=== PATIENT | female | born 1955 | race Caucasian/White ===

== ENCOUNTER 2019-11-11 09:07 | Outpatient (CLI) | payer MEDICARE, OTHER, SELFPAY ==
--- NOTE | ~2019-11-11 | MM_ITS ---
EXAMINATION: MM screening [facility] BI w nohemy HISTORY: Screening mammogram TECHNIQUE: Craniocaudal and mediolateral oblique 3-D tomosynthesis images were obtained and synthetic 2-D images were generated. CAD analysis was submitted and interpreted. COMPARISON: 08/21/2018, 08/06/2017, 07/11/2016 bilateral digital screening mammogram examinations BREAST PARENCHYMAL COMPOSITION: The breasts are heterogeneously dense, which may obscure small masses . FINDINGS: There is prominent retraction/deformity of the left breast related to partial mastectomy fo r breast cancer in 2001. Surgical clips are noted in the left axillary area. Biopsy marker is noted on the right; history of prior benign right breast biopsy. There is no evidence of interval suspicious mass, calcification, or new architectural distortion to suggest malignancy in either breast. There has been no suspicious interval change. IMPRESSION: 1. Status post left partial mastectomy for breast cancer. No mammographic evidence of malignancy. 2. Recommend routine screening mammography in one year. BI-RADS Category 2: Benign finding(s). Reviewed, dictated and finalized at location A. IMPRESSION: 1. Status post left partial mastectomy for breast cancer. No mammographic evide nce of malignancy. 2. Recommend routine screening mammography in one year. BI-RADS Category 2: Benign finding(s).
== END 2019-11-11 09:08 | disposition home or self-care (01) ==
PROVIDERS: PCP Internal Medicine; Visit Provider Nurse Practitioner
DX: Z12.31 Encounter for screening mammogram for malignant neoplasm of breast (principal)
CPT/HCPCS: 77063; 77067

== ENCOUNTER → 2020-11-14 11:11 | Outpatient (CLI) | payer MEDICARE, OTHER, SELFPAY ==
--- NOTE | ~2020-11-14 | MM_ITS ---
EXAMINATION: MM screening [facility] BI w nohemy HISTORY: Screening TECHNIQUE: Craniocaudal and mediolateral oblique 3-D tomosynthesis images were obtained and synthetic 2-D images were generated. CAD analysis was submitted and interpreted. COMPARISON: No prior mammogram is available for comparison at this institution. BREAST PARENCHYMAL COMPOSITION: The breasts are heterogeneously dense, which may obscure small masses . FINDINGS: Stable lumpectomy changes in the left breast. There is no evidence of suspicious mass, calc ification, or architectural distortion to suggest malignancy in either breast. There has been no susp icious interval change. IMPRESSION: 1. No mammographic evidence of malignancy. 2. Recommend routine screening mammography in one year. BI-RADS Category 1: Negative Reviewed, dictated and finalized at location A.
== END ==
PROVIDERS: PCP Internal Medicine; Visit Provider Nurse Practitioner
DX: Z12.31 Encounter for screening mammogram for malignant neoplasm of breast (principal)
CPT/HCPCS: 77063; 77067

== ENCOUNTER → 2021-11-16 15:45 | Outpatient (CLI) | payer MEDICARE, OTHER, SELFPAY ==
--- NOTE | ~2021-11-16 | MM_ITS ---
EXAMINATION: MM screening [facility] BI w nohemy HISTORY: Screening TECHNIQUE: Craniocaudal and mediolateral oblique 3-D tomosynthesis images were obtained and synthetic 2-D images were generated. CAD analysis was submitted and interpreted. COMPARISON: Comparison to multiple prior studies sequentially, with oldest reviewed study dated 07/06. BREAST PARENCHYMAL COMPOSITION: There are scattered areas of fibroglandular density. FINDINGS: Stable architectural distortion in the left breast, consistent with previous lumpectomy. Th ere is no evidence of suspicious mass, calcification, or architectural distortion to suggest malignan cy in either breast. There has been no suspicious interval change. IMPRESSION: 1. No mammographic evidence of malignancy. 2. Recommend routine screening mammography in one year. BI-RADS Category 1: Negative Reviewed, dictated and finalized at location A.
== END ==
PROVIDERS: PCP Internal Medicine; Visit Provider Nurse Practitioner
DX: Z12.31 Encounter for screening mammogram for malignant neoplasm of breast (principal)
CPT/HCPCS: 77063; 77067

== ENCOUNTER → 2022-05-01 11:44 | Outpatient (CLI) | payer MEDICARE, OTHER, SELFPAY ==
--- NOTE | ~2022-05-01 | DEXA_ITS ---
Bone Density Report Name: JF STARK Age: 67 Sex: Female Ethnicity: White Date of : 1955 Indication: osteopenia; height loss;postmenopausal Referring Provider: HUI TANNER Study: Bone densitometry was performed. Exam Date: May 01, 2022 Accession number: [id number] Bone Density: Region BMD T-score Z-score Classification AP Spine (L1, L4) 0.917 -1.1 0.9 Osteopenia Femoral Neck (Left) 0.717 -1.2 0.6 Osteopenia Total Hip (Left) 0.855 -0.7 0.7 Normal Femoral Neck (Right) 0.676 -1.6 0.2 Osteopenia Total Hip (Right) 0.742 -1.6 -0.2 Osteopenia Total Hip Mean 0.799 -1.2 0.3 Osteopenia World Health Organization criteria for BMD impression classify patients as: Normal (T-score at or above -1.0), Osteopenia (T-score between -1.0 and -2.5), or Osteoporosis (T-score at or below -2.5). 10-year Fracture Risk(1): Major Osteoporotic Fracture 9.9% Hip Fracture 1.4% Reported Risk Factors: [place] (), Neck BMD=0.676, BMI=25.6 (1) FRAX(R) Version 3.08. Fracture probability calculated for an untreated patient. Fracture probability may be lower if the patient has received treatment. Previous Exams: Region Exam Age BMD T-score BMD Change BMD Change Date g/cm2 vs Baseline vs Previous AP Spine(L1, L4) 05/01/2022 67 0.917 -1.1 0.070* 0.111* 08/21/2018 63 0.805 -2.1 -0.041* -0.017 07/11/2016 61 0.822 -2.0 -0.024* -0.044* 06/02/2014 59 0.867 -1.5 0.020 0.022 04/23/2012 57 0.845 -1.7 -0.001 0.007 04/05/2010 55 0.838 -1.8 -0.008 -0.021 04/08/2009 54 0.859 -1.6 0.013 0.013 03/04/2007 52 0.846 -1.7 Total Hip(Left) 05/01/2022 67 0.855 -0.7 0.046* 0.036* 08/21/2018 63 0.819 -1.0 0.010 0.010 07/11/2016 61 0.809 -1.1 0.001 -0.026 06/02/2014 59 0.836 -0.9 0.027 -0.019 04/23/2012 57 0.854 -0.7 0.046* 0.006 04/05/2010 55 0.848 -0.8 0.040* 0.003 04/08/2009 54 0.845 -0.8 0.036* 0.036* 03/04/2007 52 0.809 -1.1 Total Hip(Right) 05/01/2022 67 0.742 -1.6 0.009 0.005 08/21/2018 63 0.737 -1.7 0.003 0.003 07/11/2016 61 0.735 -1.7 0.001 -0.026 06/02/2014 59 0.760 -1.5 0.027 0.006 04/23/2012 57 0.754 -1.5 0.020 -0.001 04/05/2010 55 0.755 -1.5 0.022 0.004 04/08/2009 54 0.752
== END ==
PROVIDERS: PCP Internal Medicine; Visit Provider Obstetrics & Gynecology Gynecology
DX: M85.89 Other specified disorders of bone density and structure, multiple sites (principal); Z78.0 Asymptomatic menopausal state
CPT/HCPCS: 77080

== ENCOUNTER → 2022-12-03 12:12 | Outpatient (CLI) | payer MEDICARE, OTHER, SELFPAY ==
--- NOTE | ~2022-12-03 | MM_ITS ---
EXAMINATION: MM screening [facility] BI w nohemy HISTORY: Screening TECHNIQUE: Craniocaudal and mediolateral oblique 3-D tomosynthesis images were obtained and synthetic 2-D images were generated. CAD analysis was submitted and interpreted. COMPARISON: Comparison to multiple prior studies sequentially, with oldest reviewed study dated 07/11. BREAST PARENCHYMAL COMPOSITION: The breasts are heterogeneously dense, which may obscure small masses FINDINGS: There is stable architectural distortion of the left breast, consistent with previous lumpe ctomy. There is no evidence of suspicious mass, calcification, or architectural distortion to suggest malignancy in either breast. There has been no suspicious interval change. IMPRESSION: 1. No mammographic evidence of malignancy. 2. Recommend routine screening mammography in one year. BI-RADS Category 2: Benign finding(s). Reviewed, dictated and finalized at location A.
== END ==
PROVIDERS: PCP Family Medicine; Visit Provider Nurse Practitioner
DX: Z12.31 Encounter for screening mammogram for malignant neoplasm of breast (principal)
CPT/HCPCS: 77063; 77067

== ENCOUNTER 2023-04-09 08:44 | Outpatient (RCR) | payer MEDICARE, OTHER, SELFPAY ==
--- NOTE | 2023-04-09 10:05 | OPREHPOC ---
Outpatient Therapy Plan of Care This is a Multidisciplinary Plan of Care that may contain components documented by all disciplines (PT, OT, and ST.) PT Problem 1 PT Problem #1 Knowledge Deficit PT Goal 1 Goal 1* indep with HEP 2* good safety awareness with mobility PT Problem 2 PT Problem #2 Pain PT Goal 1 Goal 1* pt report no ache in legs PT Problem 3 PT Problem #3 Impaired Functional Mobil PT Goal 1 Goal 1* pt report NO falls pt perform with good balance and no reports of unsteady : 2* hand picker item off floor 3* transfer on/off floor 4* 360' x1 to R 5* 360' x 1 to L 6* bilateral PF single leg standing with good stability x 30 seconds 7* R 8* L 9* monitor dizziness and further assess vestibular system as indicated
--- NOTE | 2023-04-09 10:05 | PTOPEVAL1 ---
Assessment and note entered by Leatha Keith, PT Evaluation Information Assessment Status Evaluation Diagnosis dizziness, leg pain Subjective Information only had one dizzy spell about 10 years ago; no longer have any problems; have issues with vision- -wear either one contact or glasses with prisms, for driving- difficulty with seeing cars; feel like depth perception is off- troubles on stairs or unfamiliar curbs/places; take over the counter vitamins, supplements and cancer drug; feels like legs are weak and ache; lose balance on uneven surfaces; in the past 6 months have fallen 4x--walking on uneven ground in yard, few with walking backwards; ACTIVITY; do not do any regular fitness exercises; is active and busy all day; indep with all home and self care tasks; retired. Reported Pain Level Pain Score Self Report Additional Pain Score Comments pain range in past week 0-5/10; both legs ache; history of back pain and sciatica, this leg feeling is different from back pain; no numbness or tingling in legs, good sensation Assessment PT Clinical Summary Nini has the diagnosis' of: dizziness and leg weakness. She reports more off balance with walking than dizziness. She has issues with: decreased hearing--L ear better than R and has hearing aides, visual changes--decreased depth perception, uses one contact or prism glasses, and sometimes sees double, legs ache--possibly due to the cancer med she is taking. She has had 4 falls in the past 6 months. With the evaluation: Morgan balance score of 55/56; decreased standing dynamic balance with 360' turn to R and L, bilateral ankle PF, tandem stand, single leg stand, picking item up off floor and transfer on/off floor. The only activity that caused dizziness was 360' turn to R and L; with the others reported hard to do or off balance. Skilled PT services are indicated for therapeutic exercises and activities to improve standing dynamic balance, to increase safety with walking and decrease future falls. Education for safety and HEP. Will monitor f
--- NOTE | 2023-04-15 07:44 | PCPTNOTE ---
Pt. left message noting that her has just been diagnosed with leukemia and will be holding therapy for a while.
--- NOTE | 2023-04-15 11:59 | PTOPDC ---
Assessment and note entered by Leatha Keith, PT Discharge Information Assessment PT Clinical Summary PHYSICAL THERAPY DISCHARGE Nini received the PT evaluation on 04-09-23. She called today and canceled all of her appointments, due to her getting the diagnosis of cancer and he has to start treatment for it. The goals were not addressed. Discharge PT per pt request. Plan of Care PT Services Indicated No
== END 2023-04-15 13:23 | disposition home or self-care (01) ==
LOC: ANHPT 08:44
PROVIDERS: PCP Family Medicine; Visit Provider Family Medicine
DX: R42 Dizziness and giddiness (principal)
CPT/HCPCS: 97110; 97162; 97530

== ENCOUNTER 2023-04-22 08:20 | Outpatient (CLI) | payer MEDICARE, OTHER, SELFPAY ==
--- NOTE | ~2023-04-22 | US_ITS ---
US arterial ankle brachial ind INDICATION: TECHNIQUE: Segmental pressures and plethysmographic and Doppler waveforms of the brachial and lower e xtremity arteries were obtained. COMPARISON: None. FINDINGS: Right brachial artery pressures 1 25 mmHg. Left pressure not obtained due to prior left-sided surgery . The right ankle-brachial index (YESI) is 1.1 (normal >= 0.9-1.0). Toe pressures were not obtained. The left YESI is 1.08. IMPRESSION: 1. Normal bilateral ankle-brachial indices. Reviewed, dictated and finalized at location B. HANDLER
== END 2023-04-22 08:21 | disposition home or self-care (01) ==
PROVIDERS: PCP Family Medicine; Visit Provider Family Medicine
DX: I73.9 Peripheral vascular disease, unspecified (principal)
CPT/HCPCS: 93922

== ENCOUNTER 2023-10-07 00:53 | Day surgery (SDC) | payer MEDICARE, OTHER, SELFPAY ==
[2023-10-07 09:46] VITALS: BP 127/80; PULSE 76; RESP 18; TEMP 36.9; O2SAT 100
[2023-10-07] MEDS: LACTATED RINGERS 1,000 ML 150 ML IV CONT (09:54)
--- NOTE | 2023-10-07 10:18 | WPDANESEPPF ---
Anes - Initial Pre Proc Eval Procedure: Operation Date: 10/07/23 11:00 Proposed Procedures p Colonoscopy - Dusty Grover MD Date/Time: 10/07/23 10:18 Surgeon: Dusty Grover MD Pre Op Diagnosis: personal hx. colon polyps Patient Data Age: 68 Gender: F Height: Weight: 58.1 kg Last Vital Signs Temp 98.4 F 10/07/23 09:46 Pulse 76 10/07/23 09:46 Resp 18 10/07/23 09:46 BP 127/80 10/07/23 09:46 Pulse Ox 100 10/07/23 09:46 O2 Del Method Room Air 10/07/23 09:46 Allergies Allergy/AdvReac Type Severity Reaction Status Date / Time Milk Containing Products AdvReac Intermediate LACTOSE Verified 10/07/23 09:44 (Dairy) INTOLERANCE [Milk Containing Products] Home Medications Medication Instructions Recorded Confirmed Type rvhgfcwc-ajxiuog-aco-iron 18 mg-FA 1 tablet PO DAILY 06/02/19 10/07/23 History 400 mcg-vit K 80 mcg-hrb#244 tablet ([employer]) omega-3 fatty acids 1,000 mg 1,000 mg PO BID 06/02/19 09/19/23 History capsule (Fish Oil Concentrate) raloxifene 60 mg tablet 60 mg PO DAILY 06/02/19 09/19/23 History duloxetine 20 mg capsule,delayed 20 mg PO DAILY #90 caps 07/05/23 09/19/23 Rx release (Cymbalta) calcium citrate 250 mg PO BID 09/25/23 10/07/23 History famotidine 20 mg tablet 20 mg PO DAILY PRN Acid Reflux 09/25/23 10/07/23 History Patient hx anesthesia problems: none Family hx anesthesia problems: none Results Review: All pre-operative results and documents have been reviewed as part of the pre-operative evaluation. [facility] Past Medical History Medical History Headache, migraine Hearing impaired Malignant tumor of breast delivered by caesarean section, 2,000-2,499 grams and over, 35-36 completed weeks Uses hearing aid UTI (urinary tract infection) Surgical History Surgical History History of lumpectomy of left breast Hx of appendectomy Family History Family History Mother Patient's mother is in good health Family history of atrial fibrillation Other Cerebrovascular accident Family history of coronary artery disease Family history of malignant neoplasm of breast in first degree relative Social History Social History Smoking status: Never smoker Alcohol intake: current Drinks per week: 1 Alcohol use details: soical Substance use: never Substance use type: does not use Lack of Transportation: No Lack of Food: Never True Current Housing: I Have Housing Concerned About Future Housing: No Difficulty Paying Gas/Electric Bills: No Difficulty Paying for Meds: No Currently Unemployed: No Education: Associate Degree Living arrangements: with family Spiritual care concerns: No Anes - Eval Final PreProcedure Day of Procedure 10/07/23 10:18 Patient weight: normal Heart: regular rate and rhythm Lungs: clear to auscultation Airway: Mallampati scale class II Neurological: alert and oriented Last oral intake: >/= 8 hours ASA classification: III Emergent: no Anesthetic plan: proceed Anesthesia type and monitoring: general GIVS and standard monitoring Results Review: All pre-operative results and documents have been reviewed as part of the pre-operative evaluation. Informed Consent: The patient's anesthetic plan and its attendant risks and benefits were discussed with the patient/family/POA. Questions were solicited and answers provided to the satisfaction of the patient/family/POA.
--- NOTE | 2023-10-07 10:23 | PM.HPGS ---
History of Present Illness History of Present Illness Consent: Risks, benefits, and alternatives have been discussed and questions answered. Patient agrees to proceed with procedure. Chief complaint: personal hx. colon polyps Narrative: Nini Nguyen is a 68 year old female with previous colon polyp, last colonoscopy 2018 Review of Systems Review of Systems: All systems reviewed & are unremarkable except as noted in HPI and below PMFSH Past Medical History Medical History Headache, migraine Hearing impaired Malignant tumor of breast delivered by caesarean section, 2,000-2,499 grams and over, 35-36 completed weeks Uses hearing aid UTI (urinary tract infection) Surgical History Surgical History History of lumpectomy of left breast Hx of appendectomy Family History Family History Mother Patient's mother is in good health Family history of atrial fibrillation Other Cerebrovascular accident Family history of coronary artery disease Family history of malignant neoplasm of breast in first degree relative Social History Social History Smoking status: Never smoker Alcohol intake: current Drinks per week: 1 Alcohol use details: soical Substance use: never Substance use type: does not use Lack of Transportation: No Lack of Food: Never True Current Housing: I Have Housing Concerned About Future Housing: No Difficulty Paying Gas/Electric Bills: No Difficulty Paying for Meds: No Currently Unemployed: No Education: Associate Degree Living arrangements: with family Spiritual care concerns: No Meds Home Medications and Allergies Home Medications Medication Instructions Recorded Confirmed Type gtgonvjl-tparoao-lsg-iron 18 mg-FA 1 tablet PO DAILY 06/02/19 10/07/23 History 400 mcg-vit K 80 mcg-hrb#244 tablet ([employer]) omega-3 fatty acids 1,000 mg 1,000 mg PO BID 06/02/19 09/19/23 History capsule (Fish Oil Concentrate) raloxifene 60 mg tablet 60 mg PO DAILY 06/02/19 09/19/23 History duloxetine 20 mg capsule,delayed 20 mg PO DAILY #90 caps 07/05/23 09/19/23 Rx release (Cymbalta) calcium citrate 250 mg PO BID 09/25/23 10/07/23 History famotidine 20 mg tablet 20 mg PO DAILY PRN Acid Reflux 09/25/23 10/07/23 History Allergies Allergy/AdvReac Type Severity Reaction Status Date / Time Milk Containing Products AdvReac Intermediate LACTOSE Verified 10/07/23 09:44 (Dairy) INTOLERANCE [Milk Containing Products] Vital Signs Vital Signs - 24 hr 10/07/23 09:46 Temperature 98.4 F Pulse Rate 76 Respiratory Rate 18 Blood Pressure 127/80 Pulse Oximetry 100 Oxygen Delivery Room Air Exam Const: General: comfortable and no acute distress HENMT: Face/Nose/Sinus: Normal nares present Eyes: General: appearance normal, both eyes and all related structures Neck: Neck: no JVD Resp: Auscultation: clear to auscultation bilaterally Cardio: Rate: regular rate Rhythm: regular rhythm GI: Inspection: non-distended GI Palp: Yes Soft to palpation Skin: General skin exam: normal color Neuro: General: gait normal Speech: normal speech Extrem: General: normal to inspection Psych: Mental Status: mental status grossly normal Assessment and Plan Assessment and plan (1) Colon polyps: Code(s): K63.5 - Polyp of colon Status: Acute Assessment and Plan: colonoscopy
[2023-10-07 10:30] VITALS: BMI 23.4
[2023-10-07 10:42] VITALS: BP 84/55; PULSE 86; RESP 18; O2SAT 95
[2023-10-07 10:52] VITALS: BP 93/61; PULSE 65; RESP 18; O2SAT 97
[2023-10-07 10:59] VITALS: BP 106/55; PULSE 62; RESP 18; O2SAT 100
== END 2023-10-07 11:13 | disposition home or self-care (01) ==
PROVIDERS: PCP Family Medicine; Visit Provider Internal Medicine Gastroenterology
PROC: 0DJD8ZZ Inspection of Lower Intestinal Tract, Via Natural or Artificial Opening Endoscopic (ICD-10-PCS; CPT 45378; principal; 2023-10-07 11:00)
DX: Z12.11 Encounter for screening for malignant neoplasm of colon (principal); D12.0 Benign neoplasm of cecum; K64.8 Other hemorrhoids; Z79.810 Long term (current) use of selective estrogen receptor modulators (SERMs); Z98.890 Other specified postprocedural states; Z85.3 Personal history of malignant neoplasm of breast; Z80.3 Family history of malignant neoplasm of breast; Z82.49 Family history of ischemic heart disease and other diseases of the circulatory system
CPT/HCPCS: 45385; 88305; J2704; J7120

== ENCOUNTER 2024-01-03 15:14 | Outpatient (CLI) | payer MEDICARE, OTHER, SELFPAY ==
--- NOTE | ~2024-01-03 | MM_ITS ---
EXAMINATION: MM screening [facility] BI w nohemy HISTORY: Screening TECHNIQUE: Craniocaudal and mediolateral oblique 3-D tomosynthesis images were obtained and synthetic 2-D images were generated. CAD analysis was submitted and interpreted. COMPARISON: Comparison to multiple prior studies sequentially, with oldest reviewed study dated 08/06. BREAST PARENCHYMAL COMPOSITION: Not dense: There are scattered areas of fibroglandular density. FINDINGS: Stable architectural distortion in the lower inner quadrant of the left breast, consistent with previous lumpectomy. There is no evidence of suspicious mass, calcification, or architectural di stortion to suggest malignancy in either breast. There has been no suspicious interval change. IMPRESSION: 1. No mammographic evidence of malignancy. 2. Recommend routine screening mammography in one year. BI-RADS Category 1: Negative Reviewed, dictated and finalized at location B.
== END 2024-01-03 15:15 ==
PROVIDERS: PCP Family Medicine; Visit Provider Obstetrics & Gynecology Gynecology
DX: Z12.31 Encounter for screening mammogram for malignant neoplasm of breast (principal)
CPT/HCPCS: 77063; 77067

== ENCOUNTER 2024-09-09 14:35 | Outpatient (CLI) | payer MEDICARE, OTHER, SELFPAY ==
--- NOTE | ~2024-09-09 | DEXA_ITS ---
Bone Density Report Name: JF STARK Age: 69 Sex: Female Ethnicity: White Date of : 1955 Indication: postmenopausal; screening for osteoporosis; height loss; Referring Provider: NILTON VILLALOBOS Study: Bone densitometry was performed. Exam Date: September 09, 2024 Accession number: [id number] Bone Density: Region BMD T-score Z-score Classification AP Spine(L1-L4) 0.888 -1.4 0.8 Osteopenia Femoral Neck (Left) 0.687 -1.5 0.4 Osteopenia Total Hip (Left) 0.851 -0.7 0.8 Normal Femoral Neck (Right) 0.675 -1.6 0.3 Osteopenia Total Hip (Right) 0.783 -1.3 0.3 Osteopenia Total Hip Mean 0.817 -1.0 0.6 Normal World Health Organization criteria for BMD impression classify patients as: Normal (T-score at or above -1.0), Osteopenia (T-score between -1.0 and -2.5), or Osteoporosis (T-score at or below -2.5). 10-year Fracture Risk(1): Major Osteoporotic Fracture 10% Hip Fracture 1.6% Reported Risk Factors: [place] (), Neck BMD=0.675, BMI=27.1 (1) FRAX(R) Version 3.08. Fracture probability calculated for an untreated patient. Fracture probability may be lower if the patient has received treatment. Clinical Information Provided by Patient: Has used the following medications: Evista (i.e. raloxifene), Vitamin D, Calcium Patient maximum height was 63.0 Menopause Age: 47 No regular weight bearing exercise Does not regularly consume dairy products Onset of menses at age 11 Number of children 2 Impression: The patient has low bone mass, based on the Right Femoral Neck T-score. The patient has an estimated ten-year risk of hip fracture of 1.6% and an estimated ten-year risk of major fracture of 10%, based on the WHO FRAX algorithm. Discussion: BONE DENSITY IS LOW AT ONE OR MORE SKELETAL SITES. This patient's lowest T-score is low at one or more skeletal sites. It meets the World Health Organization's (WHO) criteria for ?low bone mass? (T-score between -1.0 and -2.5). The patient's 10-year risk of fracture as calculated by FRAX is less than the threshold where pharmacological therapy is recommended by the National Osteoporosis Foundation (NOF). However, all treatment decisions require clinical judgment and consideration of individual patient factors, including patient preferences, comorbidities, previous drug use, risk factors not captured in the FRAX model (e.g., frailty, falls, vitamin D deficiency, increased bone turnover, interval significant decline in bone density) and possible under or overestimation of fracture risk by FRAX. The patient should follow a healthful lifestyle (good nutrition with adequate calcium and vitamin D, and appropriate weight-bearing exercise). Follow-Up: Consider repeating this study in 2 to 3 years to reassess this patient's status, or sooner if there is some new clinical indication. Reported by: MANUEL on 09/09/2024 3:09:00 PM. Reviewed, dictated and finalized at location A.
--- OUTSIDE RECORDS SUMMARY | 2024-09-09 16:40 | XMS_ITS | Continuity of Care Document ---
Author Organization [facility] Address [address] [place] [address] [address] [place] [address] Phone Care Team Providers Care Head Of Business Development Name Role Phone Artemio Porter Unavailable Unavailable Procedures Procedure Date Office Consultation Refraction Advance Directives Directive Yes / No Effective Date File Name No Information Encounters Encounter Description Practice Location Reason(s) For Visit Diagnoses Date Provider Providers Copied on Encounter Office Consultation [facility], [address] [place] [address] [address], [place], [place], [id number], tel:[phone] [facility] No Information [address] , [address], [place], [address], [place]. tel:[phone] Referring Provider: Mikey Mcgee MD C, [address], [place], [address]. tel:[phone] Family History Family Member Type Diagnosis Age At Onset No Information Payers Payer name Insurance type Covered alliance party ID Kameron shay(s) [facility] CI [id number] Social History Type Description Quantity Date Captured Comments Sex Female Smoking Status No Information Chief Complaint And Reason For Visit No Information Reason For Referral Reason For Referral No Information History Of Present Illness Encounter Date Complaint History Of Prese nt Illness No Information Functional Status Date Functional Assessmen t No Information Instructions Date Instruction Additional Infor mation No Information Assessments Type Assessment Date No Information Patient Care Teams Name Effective Dates (start - stop) Status Members No Information
== END 2024-09-09 14:36 | disposition home or self-care (01) ==
LOC: ANHIMG 14:36
PROVIDERS: PCP Family Medicine; Visit Provider Family Medicine
DX: M85.89 Other specified disorders of bone density and structure, multiple sites (principal); Z78.0 Asymptomatic menopausal state; F32.9 Major depressive disorder, single episode, unspecified; F41.9 Anxiety disorder, unspecified; E78.00 Pure hypercholesterolemia, unspecified; R03.0 Elevated blood-pressure reading, without diagnosis of hypertension; K21.9 Gastro-esophageal reflux disease without esophagitis; M15.9 Polyosteoarthritis, unspecified; R53.83 Other fatigue; G47.00 Insomnia, unspecified
CPT/HCPCS: 77080

== ENCOUNTER 2025-01-04 12:08 | Outpatient (CLI) | payer MEDICARE, OTHER, SELFPAY ==
--- NOTE | ~2025-01-04 | MM_ITS ---
EXAMINATION: MM screening [facility] BI w nohemy HISTORY: Screening mammogram TECHNIQUE: Craniocaudal and mediolateral oblique 3-D tomosynthesis images were obtained and synthetic 2-D images were generated. CAD analysis was submitted and interpreted. COMPARISON: 01/03/2024, 12/03/2022, 11/06/2021, 11/14/2020 BREAST PARENCHYMAL COMPOSITION:Dense: The breasts are heterogeneously dense, which may obscure small masses. FINDINGS: Stable postoperative distortion of the left breast. No suspicious mass, calcification, or n ew architectural distortion are identified in either breast to suggest malignancy. There has been no suspicious interval change. IMPRESSION: No mammographic evidence of malignancy. Recommend routine screening mammography in one year. BI-RADS Category 1: Negative Reviewed, dictated and finalized at [facility].
== END 2025-01-04 12:09 | disposition home or self-care (01) ==
PROVIDERS: PCP Obstetrics & Gynecology Gynecology; Visit Provider Family Medicine
DX: Z12.31 Encounter for screening mammogram for malignant neoplasm of breast (principal)
CPT/HCPCS: 77063; 77067

== ENCOUNTER 2025-04-13 08:39 | Outpatient (CLI) | payer MEDICARE, OTHER, SELFPAY ==
--- NOTE | ~2025-04-13 | US_ITS ---
US arterial ankle brachial ind INDICATION: Peripheral vascular disease TECHNIQUE: Segmental pressures and plethysmographic and Doppler waveforms of the brachial and lower extremity arteries were obtained. COMPARISON: None. FINDINGS: Right and left brachial artery pressures of 128 mm Hg and 119 mm Hg, respectively, are concordant (normal difference <= 30 mmHg). The right ankle-brachial index (YESI) is 1.14 (normal >= 0.9-1.0). The right great toe-brachial index (TBI) is 0.65 (normal >= 0.60). The left YESI is 1.08. The left TBI is 0.82. IMPRESSION: 1. Normal ankle-brachial indices. Reviewed, dictated and finalized at location O. [facility] [employer]
== END 2025-04-13 08:40 | disposition home or self-care (01) ==
PROVIDERS: PCP Family Medicine; Visit Provider Family Medicine
DX: I73.9 Peripheral vascular disease, unspecified (principal)
CPT/HCPCS: 93922